=== PATIENT | female | born 1985 | race Caucasian/White ===

== ENCOUNTER 2021-12-09 23:39 | Emergency (ER) | payer SELFPAY ==
[2021-12-10] MEDS ORDERED: Zofran 4 MG/2 ML VIAL IV ONE (00:22)
[2021-12-10 00:35] LABS: Absolute Neutrophil Ct (ANC) 8.75 (1.4-6.9); Basophil (Absolute #) 0.01 (0-0.4); Eosinophil % 0.3 % (0.00-5.0); Eosinophil (Absolute #) 0.04 (0-0.5); Hematocrit 47.1 % (35-47); Hemoglobin 16.4 gm/dl (12.0-16.0); Lymphocyte (Absolute #) 2.41 (1.0-4.6); Lymphocytes % 19.5 % (24.0-44.0); Mean Cell Volume 83.7 fl (78-100); Mean Corpuscular Hemoglobin 29.1 pg (26-32); Mean Corpuscular Hgb Concent. 34.8 g/dl (32-36); Mean Platelet Volume 9.2 fl (7.5-11.0); Monocyte (Absolute #) 1.12 (0.0-1.3); Monocytes % 9.1 % (0.0-12.0); Platelet Count 378 K/mm3 (150-450); Red Blood Count 5.63 M/mm3 (4.1-5.4); Red Cell Distribution Width 13.5 % (11.5-14.0); White Blood Count 12.3 K/mm3 (4.0-10.5)
[2021-12-10 00:49] LABS: ACETAMINOPHEN < 10 ug/ml (10-30); ALBUMIN 4.4 g/dL (3.5-5.0); ALKALINE PHOSPHATASE 100 U/L (38-126); ANION GAP 17.1 MEQ/L (5-15); BLOOD UREA NITROGEN 12 mg/dL (7-17); CHLORIDE 101 mmol/L (98-107); Calcium 9.7 mg/dL (8.4-10.2); Carbon Dioxide 23 mmol/L (22-30); Creatinine 1 0.56 mg/dL (0.52-1.04); EST GLOMERULAR FILTRATION RATE > 60.0 ML/MIN; ETHYL ALCOHOL < 10 mg/dL (0-10); Glucose 131 mg/dL (74-106); SALICYLATE < 1.0 mg/dL (2-20); SGOT/AST 46 U/L (14-36); SGPT/ALT 42 U/L (0-35); SODIUM 139 mmol/L (137-145); Total Protein 7.2 g/dL (6.3-8.2)
[2021-12-10 00:58] LABS: Amphetamine,Urine NEGATIVE (NEGATIVE); Barbiturate,Urine NEGATIVE (NEGATIVE); Benzodiazepine,Urine NEGATIVE (NEGATIVE); Cocaine,Urine NEGATIVE (NEGATIVE); Methadone,Urine NEGATIVE (NEGATIVE); Opiate,Urine NEGATIVE (NEGATIVE); PCP,Urine NEGATIVE (NEGATIVE); THC,Urine NEGATIVE (NEGATIVE)
[2021-12-10 01:00] LABS: Potassium 2.7 mmol/L (3.5-5.1)
[2021-12-10] MEDS ORDERED: Klor Con 10 MEQ PO ONE ×2 (01:03→01:05)
[2021-12-10 01:05] LABS: Appearance CLEAR (CLEAR); Bilirubin NEGATIVE (NEGATIVE); Glucose NEGATIVE (NEGATIVE); Ketones NEGATIVE (NEGATIVE); Nitrite NEGATIVE (NEGATIVE); Ph 6.5 (5-6); Protein,Urine Dip NEGATIVE (Negative); RBC TRACE-INTACT Ery/ul (0-5); Specific Gravity 1.025 (1.005-1.025); Urobilinogen 0.2 mg/dL (0-1)
[2021-12-10 01:06] LABS: Dipstick done @ ? MAIN LAB
[2021-12-10 01:08] LABS: Mucus MANY /HPF (NEGATIVE); RBC 0-2 /HPF (0-2)
--- NOTE | 2021-12-10 01:14 | ERPHSYRPT ---
- History of Present Illness Source: patient, police Exam Limitations: other (Very poor historian) Patient Subjective Stated Complaint: PATIENT C/O ANXIETY. STATES, "I NEED ATIVAN." BROUGHT IN BY POLICE WHO STATES SHE WAS DROWSY AT THE RETIREMENT AND THEY WANT HER MEDICALLY CLEARED. DENIES PAIN OR SOB. Triage Nursing Assessment: Patient arrived by police. She is alert but is d rowsy. She does answer questions appropriately but sometimes staff must ask them a few different times. MALCOM WNL. No SOB noted. Physician History: 36 yo wf who eloped from the [facility] was found on a local property and is charged w [employer]. Pt brought in by police because she is somewhat somnolent. She states that she is from [place], [place] and was dropped off at the [facility] on Thursday by her father. Pt has a h/o Meth/Heroin abuse. She has a good airway and is alert. Timing/Duration: today Severity: mild Associated Symptoms: No nausea, No vomiting, No abdominal pain, No shortness of breath, No heartburn, No diaphoresis, No cough, No chills, No chest pain, No fever, No headaches, No loss of appetite, No malaise, No rash, No syncope, No seizure, No weakness Allergies/Adverse Reactions: No Known Drug Allergies Allergy (Verified 12/09/21 23:43) Home Medications: Lorazepam 0.5 mg [Ativan 0.5 MG] 1 tab PO TID 12/09/21 [History] Hx Tetanus, Diphtheria Vaccination/Date Given: Yes (MAYBE NOT TETANUS) Hx Influenza Vaccination/Date Given: No Hx Pneumococcal Vaccination/Date Given: No Immunizations Up to Date: Yes Travel Risk - International Travel Have you traveled outside of the country in past 3 weeks: No - Coronavirus Screening Are you exhibiting any of the following symptoms?: No Close contact with a COVID-19 positive Pt in past 14-21 Days: No - Vaccine Status Have you recieved a Covid-19 vaccination: No - Review of Systems Constitutional: No Symptoms Eyes: No Symptoms Ears, Nose, & Throat: No Symptoms Respiratory: No Symptoms Cardiac: No Symptoms Abdominal/Gastrointestinal: No Symptoms Genitourinary Symptoms: No Symptoms Musculoskeletal: No Symptoms Skin: No Symptoms Neurological: No Symptoms Psychological: No Symptoms, Alcohol Abuse, Drug Abuse Endocrine: No Symptoms Hematologic/Lymphatic: No Symptoms Immunological/Allergic: No Symptoms - Past Medical History Pertinent Past Medical History: Yes Psycho-Social History: Anxiety - Past Surgical History Past Surgical History: No Other Surgical History: DENIES ANY PAST SURGERIES - Social History Smoking Status: Current every day smoker How long have you smoked: UNSURE Exposure to second hand smoke: Yes Drug Use: none Patient Lives Alone: No Significant Family History: no pertinent family hx - Female History Hx Last Menstrual Period: UNSURE Hx Now: No - Nursing Vital Signs Nursing Vital Signs: Initial Vital Signs Temperature 98.4 F 12/09/21 23:47 Pulse Rate 109 H 12/09/21 23:47 Respiratory Rate 20 12/09/21 23:47 Blood Pressure 123/77 12/09/21 23:47 O2 Sat by Pulse Oximetry 98 12/09/21 23:47 Pain Scale Pain Intensity 0 Mildly tachy - Physical Exam General Appearance: no apparent distress Eye Exam: PERRL/EOMI, eyes nml inspection Ears, Nose, Throat Exam: normal ENT inspection, TMs normal, pharynx normal, moist mucous membranes Neck Exam: normal inspection, non-tender, supple, full range of motion, No meningismus, No mass, No Brudzinski, No Kernig's Respiratory Exam: normal breath sounds, lungs clear, airway intact Cardiovascular Exam: regular rate/rhythm, normal heart sounds, normal peripheral pulses, capillary refill <2 sec, No murmur Gastrointestinal/Abdomen Exam: soft, normal bowel sounds, No tenderness Back Exam: normal inspection, normal range of motion, No CVA tenderness, No vertebral tenderness Extremity Exam: normal inspection, normal range of motion, pelvis stable Neurologic Exam: oriented x 3, 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 nml as tested, sensation nml, uncooperative (Pt somewhat uncooperative w history ), No motor deficits, No sensory deficit Skin Exam: normal color, warm, dry Lymphatic Exam: No adenopathy SpO2 Interpretation: normal SpO2: 98 O2 Delivery: Room Air - Course Nursing assessment & vital signs reviewed: Yes EKG Interpreted by Me: RATE (Sinus tach/Rate 103/Prolonged QTc/Non-specific ST- Twave changes/Artifact-poor tracing/EKG#2 NSR/R80/Normal Qt-QTc/No acute ST segment changes) Ordered Tests: Active Orders 24 hr Category Date Time Status EKG-ER Only STAT Care 12/09/21 23:59 Completed CULTURE,URINE Stat Lab 12/10/21 00:26 Received TROPONIN Q3H Lab 12/10/21 00:15 Completed Urine Triage Profile Stat Lab 12/10/21 00:26 Completed Medication Summary Discontinued Medications Generic Name Dose Route Start Last Admin Trade Name [place] PRN Reason Stop Dose Admin Sodium Chloride 1,000 mls @ 999 mls/hr 12/10/21 01:15 12/10/21 02:23 Sodium Chloride 0.9% 1000 Ml IV 12/10/21 02:15 Infused .Q1H1M STA Infusion Sodium Chloride Confirm 12/10/21 01:16 Sodium Chloride 0.9% 1000 Ml Administered 12/10/21 01:17 Dose 1,000 mls @ ud .ROUTE .STK-MED ONE Ondansetron HCl 4 mg 12/10/21 00:22 12/10/21 00:49 Ondansetron Hcl 4 Mg/2 Ml Vial IV 12/10/21 00:23 Not Given STAT ONE Potassium Chloride 40 meq 12/10/21 01:03 12/10/21 01:06 Potassium Chloride 10 Meq Tablet PO 12/10/21 01:04 40 meq STAT ONE Administration Potassium Chloride Confirm 12/10/21 01:05 Potassium Chloride 10 Meq Tablet Administered 12/10/21 01:06 Dose 40 meq PO .STK-MED ONE Lab/Rad Data: Laboratory Result Diagrams 12/09/21 00:15 12/09/21 00:15 Laboratory Results 12/10/21 12/10/21 12/10/21 Range/Units 00:26 00:26 00:15 WBC (4.0-10.5) K/mm3 RBC (4.1-5.4) M/mm3 Hgb (12.0-16.0) gm/dl Hct (35-47) % MCV (78-100) fl MCH (26-32) pg MCHC (32-36) g/dl RDW (11.5-14.0) % Plt Count (150-450) K/mm3 MPV (7.5-11.0) fl Gran % (36.0-66.0) % Eos # (Auto) (0-0.5) Absolute Lymphs (auto) (1.0-4.6) Absolute Monos (auto) (0.0-1.3) Lymphocytes % (24.0-44.0) % Monocytes % (0.0-12.0) % Eosinophils % (0.00-5.0) % Basophils % (0.0-0.4) % Absolute Granulocytes (1.4-6.9) Basophils # (0-0.4) Sodium (137-145) mmol/L Potassium (3.5-5.1) mmol/L Chloride (98-107) mmol/L Carbon Dioxide (22-30) mmol/L Anion Gap (5-15) MEQ/L BUN (7-17) mg/dL Creatinine (0.52-1.04) mg/dL Estimated GFR ML/MIN Glucose (74-106) mg/dL Calcium (8.4-10.2) mg/dL Total Bilirubin (0.2-1.3) mg/dL AST (14-36) U/L ALT (0-35) U/L Alkaline Phosphatase (38-126) U/L Troponin I < 0.012 (0.000-0.034) ng/mL Serum Total Protein (6.3-8.2) g/dL Albumin (3.5-5.0) g/dL Serum , Qual (Negative) Urinalys Dipstick Clnc MAIN LAB Urine Color YELLOW (YELLOW) Urine Appearance CLEAR (CLEAR) Urine pH 6.5 (5-6) Ur Specific [place] 1.025 (1.005-1.025) POC Urine Protein Conf NEGATIVE (Negative) Urine Ketones NEGATIVE (NEGATIVE) Urine Nitrite NEGATIVE (NEGATIVE) Urine Bilirubin NEGATIVE (NEGATIVE) Urine Urobilinogen 0.2 (0-1) mg/dL Urine Leukocytes NEGATIVE (NEGATIVE) Urine WBC (Auto) 3-5 (0-5) /HPF Urine RBC (Auto) 0-2 (0-2) /HPF U Epithel Cells (Auto) NONE (FEW) /HPF Urine Bacteria (Auto) NONE (NEGATIVE) /HPF Urine RBC TRACE-INTACT (0-5) Virgil/ul Urine Mucus (Auto) MANY (NEGATIVE) /HPF Ur Culture Indicated? NO Urine Glucose NEGATIVE (NEGATIVE) mg/dL Salicylates (2-20) mg/dL Urine Opiates Level NEGATIVE (NEGATIVE) Ur Methadone NEGATIVE (NEGATIVE) Acetaminophen (10-30) ug/ml Urine Barbiturates NEGATIVE (NEGATIVE) Ur Phencyclidine (PCP) NEGATIVE (NEGATIVE) Urine Amphetamine NEGATIVE (NEGATIVE) U Benzodiazepine Level NEGATIVE (NEGATIVE) Urine Cocaine NEGATIVE (NEGATIVE) Urine Marijuana (THC) NEGATIVE (NEGATIVE) Ethyl Alcohol (0-10) mg/dL 12/09/21 12/09/21 12/09/21 Range/Units 00:15 00:15 00:15 WBC 12.3 H (4.0-10.5) K/mm3 RBC 5.63 H (4.1-5.4) M/mm3 Hgb 16.4 H (12.0-16.0) gm/dl Hct 47.1 H (35-47) % MCV 83.7 (78-100) fl MCH 29.1 (26-32) pg MCHC 34.8 (32-36) g/dl RDW 13.5 (11.5-14.0) % Plt Count 378 (150-450) K/mm3 MPV 9.2 (7.5-11.0) fl Gran % 71.0 H (36.0-66.0) % Eos # (Auto) 0.04 (0-0.5) Absolute Lymphs (auto) 2.41 (1.0-4.6) Absolute Monos (auto) 1.12 (0.0-1.3) Lymphocytes % 19.5 L (24.0-44.0) % Monocytes % 9.1 (0.0-12.0) % Eosinophils % 0.3 (0.00-5.0) % Basophils % 0.1 (0.0-0.4) % Absolute Granulocytes 8.75 H (1.4-6.9) Basophils # 0.01 (0-0.4) Sodium 139 (137-145) mmol/L Potassium 2.7 L* (3.5-5.1) mmol/L Chloride 101 (98-107) mmol/L Carbon Dioxide 23 (22-30) mmol/L Anion Gap 17.1 H (5-15) MEQ/L BUN 12 (7-17) mg/dL Creatinine 0.56 (0.52-1.04) mg/dL Estimated GFR > 60.0 ML/MIN Glucose 131 H (74-106) mg/dL Calcium 9.7 (8.4-10.2) mg/dL Total Bilirubin 0.50 (0.2-1.3) mg/dL AST 46 H (14-36) U/L ALT 42 H (0-35) U/L Alkaline Phosphatase 100 (38-126) U/L Troponin I (0.000-0.034) ng/mL Serum Total Protein 7.2 (6.3-8.2) g/dL Albumin 4.4 (3.5-5.0) g/dL Serum , Qual NEGATIVE (Negative) Urinalys Dipstick Clnc Urine Color (YELLOW) Urine Appearance (CLEAR) Urine pH (5-6) Ur Specific [place] (1.005-1.025) POC Urine Protein Conf (Negative) Urine Ketones (NEGATIVE) Urine Nitrite (NEGATIVE) Urine Bilirubin (NEGATIVE) Urine Urobilinogen (0-1) mg/dL Urine Leukocytes (NEGATIVE) Urine WBC (Auto) (0-5) /HPF Urine RBC (Auto) (0-2) /HPF U Epithel Cells (Auto) (FEW) /HPF Urine Bacteria (Auto) (NEGATIVE) /HPF Urine RBC (0-5) Virgil/ul Urine Mucus (Auto) (NEGATIVE) /HPF Ur Culture Indicated? Urine Glucose (NEGATIVE) mg/dL Salicylates < 1.0 L (2-20) mg/dL Urine Opiates Level (NEGATIVE) Ur Methadone (NEGATIVE) Acetaminophen < 10 L (10-30) ug/ml Urine Barbiturates (NEGATIVE) Ur Phencyclidine (PCP) (NEGATIVE) Urine Amphetamine (NEGATIVE) U Benzodiazepine Level (NEGATIVE) Urine Cocaine (NEGATIVE) Urine Marijuana (THC) (NEGATIVE) Ethyl Alcohol < 10 (0-10) mg/dL - Progress Progress: improved Progress Note: 12/10/21 02:18 40MEq po KCl 1L NS bolus Pt discharged in care of police in stable condition Counseled pt/family regarding: lab results, diagnosis, need for follow-up - Departure Departure Disposition: Residential/Senior Care Clinical Impression: History of elopement from health care facility, Hypokalemia Condition: Stable Critical Care Time: No Instructions: Hypokalemia (DC) Additional Instructions: Start potassium twice a day for 1week Follow up with your family MD Return to ER as needed Prescriptions: Potassium Chloride 40 meq PO BID 7 Days #14
[2021-12-10] MEDS ORDERED: Sodium Chloride 0.9% 1000 ML 1,000 ML IV STA (01:15)
[2021-12-10] MEDS ORDERED: Sodium Chloride 0.9% 1000 ML 1,000 ML ONE (01:16)
[2021-12-10 01:49] LABS: Urine Cultured Indicated? NO
[2021-12-10 02:25] VITALS: BP 124/86; PULSE 90
[2021-12-10 04:10] VITALS: O2SAT 98
== END 2021-12-10 02:58 ==
LOC: ED 23:39
DX: Z91.19 Patient's noncompliance with other medical treatment and regimen (principal); E87.6 Hypokalemia; F41.9 Anxiety disorder, unspecified; Z72.0 Tobacco use; Z79.899 Other long term (current) drug therapy
CPT/HCPCS: 36000; 36415; 80053; 80307; 81015; 81025; 84484; 85025; 87086; 93005; 96360; 99284; A9270-GY; G0480